=== PATIENT | male | born 1990 | race Caucasian/White ===

== ENCOUNTER 2022-12-24 11:51 | Emergency (ER) | payer OTHER ==
[~2022-12-24] VITALS: Ht 170.2 cm; Wt 64.4 kg
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
[2022-12-24] MEDS ORDERED: LIDOCAINE HCL/PF 1% 30 ML SDV ONE (12:06)
--- NOTE | 2022-12-24 12:15 | NUR ---
IRRIGATE AND CLEAN WOUND DONE BY ED TACH
[2022-12-24] MEDS ORDERED: TDAP [DIPH/PERTUSSIS/TET] 0.5 ML VIAL IM ONE ×2 (12:30→12:39)
--- NOTE | 2022-12-24 12:40 | NUR ---
AT BED SIDE SUTURE WAS DONE AT BED SIDE
--- NOTE | 2022-12-24 13:00 | NUR ---
D TACH DRESSING APPLED BY E
--- NOTE | 2022-12-24 13:25 | NUR ---
Patient discharged to home in stable condition. Written and verbal after care instructions given. Patient verbalizes understanding of instruction.
[2022-12-24 13:32] VITALS: BP 108/73
== END 2022-12-24 13:33 | disposition home or self-care (01) ==
LOC: ER 11:55
DX: S61.412A Laceration without foreign body of left hand, initial encounter (principal); W26.0XXA Contact with knife, initial encounter; Y93.89 Activity, other specified; Y92.89 Other specified places as the place of occurrence of the external cause; Y99.8 Other external cause status
CPT/HCPCS: 99283; 12004; 90471; 90715; J3490